=== PATIENT | male | born 1930 | race Caucasian/White ===

== ENCOUNTER → 2018-11-13 | Outpatient (CLI) | payer MEDICARE, OTHER ==
[~2018-11-13] MED LIST: REGADENOSON 0.4 MG/5 ML SYR IV ONE
--- NOTE | 2018-11-13 17:50 | Myoview Stress Test ---
DATE OF STUDY: 11/13/2018 08:15:00 Stress Test - Treadmill ONLY PROCEDURE: Lexiscan nuclear stress test. INDICATION: Shortness of breath. TECHNIQUE: The patient was given 11 mCi of Myoview. Resting images were obtained in the horizontal long axis, vertical long axis, and short axis. The patient was then hooked up to the EKG machine. Lexiscan was infused over 15 seconds. During Lexiscan infusion, the patient had no EKG changes. Immediately after Lexiscan infusion, the patient was given 27 mCi of Myoview. Stress images were obtained 30 minutes after completion of the Lexiscan infusion. Stress images were obtained in the horizontal long axis, vertical long axis, and short axis. Results as follows: 1. The resting EKG demonstrated normal sinus rhythm with nonspecific ST and T-wave changes. 2. There were no EKG changes and no symptoms during Lexiscan infusion. 3. The patient had normal perfusion to all segments of the myocardium in both stress and rest. 4. There was normal left ventricular size and function with an ejection fraction of 72%. CONCLUSION: It is a normal Lexiscan nuclear stress test with no evidence of ischemia. MD MARCOS Connolly/MODL /[id number]
== END ==
LOC: NM 08:00
PROVIDERS: ATTEND Internal Medicine Cardiovascular Disease
DX: I25.110 Atherosclerotic heart disease of native coronary artery with unstable angina pectoris (principal)
CPT/HCPCS: 78452; 93017; A9502